=== PATIENT | male | born 1955 | race Caucasian/White ===

== ENCOUNTER 2016-12-29 07:33 | Outpatient (CLI) | payer MEDICARE, BC ==
[~2016-12-29] VITALS: Ht 175.3 cm; Wt 78.2 kg
--- NOTE | ~2016-12-29 | HEMODYNAMI ---
PATIENT:PARIS BENJAMIN MEDICAL RECORD: [id number] : 55 LOCATION:DBI ADMISSION DATE: 12/29/16 Generatedon:12/29/201610:57 Patient name: PARIS BENJAMIN Patient #: [id number] SSN: D OB: 1955 Date of study: 12/29/2016 Page: Of Hemodynamic Procedure Report Patient Data Patient Demographics Procedure consent was obtained First Name: PARIS Gender: Male Last Name: SOURAV : 1955 [facility] Initial: NATHANAEL Age: 61 year(s) Patient #: [id number] Race: Additional ID: [id number] Contact details Address: [address] [place] [address] State: [place] City: [facility] Zip code: [address] Past Medical History Performed procedures and imaging results Date Procedure Procedure Results Comments 12/18/2016 Stress testing Positive anterolaterally with SPECT MPI Allergies Allergen Reaction Date Comments Reported Other allergy 12/29/2016 phenobarbital Admission Admission Data Admission Date: 12/29/2016 Admission Time: 7:33 Admit Source: Other Insurance Payor: Private health insurance, Medicare Medications upon Admission Medications Dosage Times Administered Last Remarks per Delivery Day Date and Time Clopidogrel Yes 12/29/2016 0:00 Lab Results Lab Result Date: 12/29/2016 Lab Result Time: 7:50 Biochemistry Name Units Result Min Max Creatinine mg/dl 1 --(--*-)-- 0.6 1.3 CBC Name Units Result Min Max Hemoglobin g/dl 14.1 --(*---)-- 13.5 17.5 Procedure Procedure Types Cath Procedure Diagnostic Procedure LHC LHC w/Coronaries w/Grafts PCI Procedure Coronary Stent Initial Procedure Description Procedure Date Procedure Date: 12/29/2016 Procedure Start Time: 10:14 Procedure End Time: 10:54 Procedure Staff Name Function Kaylee Hall RT Scrub Xander Easton RT Monitor Wali Keita RT [employer] June Posada RN Nurse Willem Arciniega MD Performing Physician Rene Kitchen RT Monitor Procedure Data Cath Procedure Fluoroscopy Diagnostic fluoroscopy Total fluoroscopy Time: time: 15.4 min 15.4 min Diagnostic fluoroscopy Total fluoroscopy dose: dose: 1307 mGy 1307 mGy Contrast Material Contrast Material Type Amount (ml) Isovue 300 248 Entry Location Entry Primary Successful Side Size Upsize Upsize Entry Closure Succes sful Closure Location (Fr) 1 (Fr) 2 (Fr) Remarks Device Remarks Femoral Right 5 Fr 6 Fr Vascade artery Short Closure System Estimated blood loss: 10 ml Diagnostic catheters Device Type Used For End Catheter Placement Cordis 5Fr Pigtail Procedure Catheter (MP) Cordis 5Fr JL 4.0 Procedure Catheter (MP) Cordis Infinity 5Fr JL 6 Procedure catheter Cordis 5Fr 3DRC Catheter Procedure (MP) Cordis Infinity 5Fr AR 2 Procedure MOD catheter Cordis Infinity 5Fr LCB Procedure catheter Procedure Complications No complications Procedure Medications Medication Administration Route Dosage Oxygen NC 2 l/min Lidocaine 2% added to field 20 Heparin Flush Bag added to field 2 bags (1000units/500ml NS) 0.9% NaCl I.V. 100 ml/hr Benadryl I.V. 50 mg Versed 1 mg Fentanyl I.V. 50 mcg Versed 1 mg Fentanyl I.V. 50 mcg Versed 1 mg Fentanyl I.V. 50 mcg Heparin Bolus I.V. 4000 units Versed 1 mg Fentanyl I.V. 50 mcg Hemodynamics Rest HGB: 14.1 (g/dl) Heart Rate: 56 (bpm) Pressure Samples Time Site Value (mmHg) Purpose Heart Use Rate(bpm) 10:17 AO 150/26(61) Snapshot 58 Snapshots Pre Cath Intra NCS Post Cath Vital Signs Time Heart Resp SPO2 etCO2 IU7lmmg NIBP (mmHg) Rhythm Pain Sedation Rate (ipm) (%) (mmHg) (mmHg) Status Level (bpm) 9:52:19 57 18 97 0 0 147/75(109) NSR 0 (11) 10(A) , No pain 9:56:36 55 19 98 0 0 150/76(126) NSR 0 (11) 10(A) , No pain 10:00:50 57 18 93 0 0 132/78(110) NSR 0 (11) 10(A) , No pain 10:05:02 56 19 96 0 0 147/69(123) NSR 0 (11) 10(A) , No pain 10:09:15 57 19 93 0 0 140/79(117) NSR 0 (11) 10(A) , No pain 10:13:25 59 19 93 0 0 149/81(111) NSR 0 (11) 10(A) , No pain 10:17:41 57 17 98 0 0 135/73(114) NSR 0 (11) 9(A) , No pain 10:21:53 59 16 94 0 0 121/71(103) NSR 0 (11) 9(A) , No pain 10:25:59 57 15 94 0 0 140/81(112) NSR 0 (11) 9(A) , No pain 10:30:11 60 16 93 0 0 144/76(122) NSR 0 (11) 9(A) , No pain 10:34:23 68 15 95 0 0 147/79(127) NSR 0 (11) 9(A) , No pain 10:38:37 60 16 95 0 0 150/79(126) NSR 0 (11) 9(A) , No pain 10:42:53 60 16 93 0 0 146/73(121) NSR 0 (11) 9(A) , No pain 10:47:09 59 16 93 0 0 134/72(108) NSR 0 (11) 9(A) , No pain 10:51:19 61 16 94 0 0 141/80(116) NSR 0 (11) 10(A) , No pain Medications Time Medication Route Dose Verified Delivered Reason Notes Effectiveness by by 9:50:47 Oxygen NC 2 Willem Buffie used for l/min Demian Posada RN procedure 9:50:54 Lidocaine 2% added 20ml Willem Bangura for local to vial Demian Arciniega MD anesthetic field 9:50:59 Heparin Flush added 2 Willemregan Bangura used for Bag to bags Demian Arciniega MD procedure (1000units/500ml field NS) 9:51:09 0.9% NaCl I.V. 100 Willem Buffie Per physician ml/hr Demian Posada RN 9:51:21 Benadryl I.V. 50 mg Willem Buffie used for Demian Posada RN procedure 10:12:10 Fentanyl I.V. 50 Willem Buffie for sedation mcg Demian Posada RN 10:12:59 Versed 1 mg Willem Buffie for sedation Demian Posada RN 10:16:14 Versed 1 mg Willem Buffie for sedation Demian Posada RN 10:16:17 Fentanyl I.V. 50 Willem Buffie for sedation mcg Demian Posada RN 10:21:57 Versed 1 mg Willem Buffie for sedation Demian Posada RN 10:22:01 Fentanyl I.V. 50 Willem Jose Antonioie for sedation mcg Demian Posada RN 10:25:35 Heparin Bolus I.V. 4000 Willem Buffie for verifi ed units Demian Posada RN anticoagulation with dr arciniega 10:40:43 Versed 1 mg Willem Buffie for sedation Demian Posada RN 10:40:47 Fentanyl I.V. 50 Willem Buffie for sedation mcg Demian Posada RN Procedure Log Time Note 9:27:26 Wali Keita RT(R) sent for patient. Start room use. 9:37:00 Diagnostic Cath Status : Elective 9:37:23 Admit Source: Other 9:37:28 Time tracking: Regular hours 9:37:31 Plan of Care:Hemodynamics will remain stable., Cardiac rhythm will remain stable., Comfort level will be maintained., Respiratory function will remain adequate., Patient/ family verbilizes understanding of procedure., Procedure tolerated without complication., Recovers from procedure without complications.. 9:46:10 Patient received from Outpatients to [facility] 2 Alert and oriented. Tansferred to table in Supine position. 9:46:11 Warm blankets applied, and isidra hugger turned on for patient comfort. 9:46:12 Correct patient and procedure confirmed by team. 9:46:13 Signed procedure consent form obtained from patient. 9:46:14 ECG and BP/O2 sat monitors applied to patient. 9:46:16 Full Disclosure recording started 9:50:31 Vital chart was started 9:50:47 Oxygen 2 l/min NC was given by June Posada RN; used for procedure; 9:50:54 Lidocaine 2% 20ml vial added to field was given by Willem Arciniega MD; for local anesthetic; 9:50:59 Heparin Flush Bag (1000units/500ml NS) 2 bags added to field was given by Willem Arciniega MD; used for procedure; 9:51:09 0.9% NaCl 100 ml/hr I.V. was given by June Posada RN; Per physician; 9:51:21 Benadryl 50 mg I.V. was given by June Posada RN; used for procedure; 9:54:41 Baseline sample Acquired. 9:54:47 Rhythm: sinus rhythm 9:55:02 H&P Date Dictated: 12/24/2016 Within 30 days and on chart., H&P Addendum completed by physician on day of procedure. (MUST COMPLETE FOR ALL OUTPATIENTS). 9:55:29 Pre-procedure instructions explained to patient. 9:55:30 Pre-op teaching completed and patient verbalized understanding. 9:55:30 Pre-procedure instructions explained to patient. 9:55:32 Family in waiting room. 9:55:35 Patient NPO since Midnight. 9:55:52 Patient allergic to Other allergyphenobarbital 9:55:54 Is the patient allergic to Iodine/contrast media? No. 9:56:01 Is patient on blood thinner?Yes 9:56:10 ACC The patient was administered the following blood thiners within the last 24 hours: ACCPlavix 9:56:26 Patient diabetic? Yes. 9:56:28 If diabetic: On Metformin? Yes 9:56:38 If on Metformin: Last Dose? 12/27/2016 9:56:43 Previous problem with sedation/anesthesia? No ? 9:56:45 Snore? Yes 9:56:46 Sleep apnea? Yes 9:56:47 Deviated septum? No 9:56:49 Opens mouth fully? Yes 9:56:51 Sticks out tongue? Yes 9:56:55 Airway obstruction? No ? 9:56:59 Dentures? No ? 9:57:05 Pre procedure: right dorsailis pedis pulse 1+ Palpable, but thready & weak; easily obliterated 9:57:11 Patient pain scale 0/10 ?. 9:57:19 IV patent on arrival in left forearm with 0.9% NaCl at O. 9:58:27 Lab Result : Hemoglobin 14.1 g/dl 9:58:27 Lab Result : Creatinine 1 mg/dl 9:58:30 Lab results completed and on chart. 9:58:32 Right groin area was prepped with chlora-prep and draped in sterile fashion 9:58:39 Sharps counted by scrub and verified by R.N. 9:58:39 Alarms reviewed by R. N. 9:58:43 Use device set Femoral Dx 9:58:54 Tegaderm 4 x 4 opened to sterile field. 9:58:55 Acist Hand Control opened to sterile field. 9:58:55 Acist Manifold opened to sterile field. 9:58:56 Acist Syringe opened to sterile field. 9:58:57 Bag Decanter opened to sterile field. 9:58:58 Terumo 5Fr [place] Sheath opened to sterile field. 9:58:58 Cardinal Cath Pack opened to sterile field. 9:58:59 Cordis Infinity 5Fr Multipack catheter opened to sterile field. 9:58:59 St Olaf 260cm J .035 wire opened to sterile field. 9:59:09 ACC Patient presents with Stable Angina CCS Anginal Class 2--Slight limitation of ordinary activity. 9:59:16 Physician paged 10:01:11 Zero performed for pressure channel P1 10:07:02 Insurance Payor : Private health insurance, Medicare 10:11:56 --------ALL STOP TIME OUT------ 10:11:56 Physician arrived 10:11:57 Final Timeout: patient, procedure, and site verified with staff and physician. All members of the team are in agreement. 10:11:58 Right groin site verified by team. 10:12:01 Physical assessment completed. ASA score P 3 - A patient with severe systemic disease as per Willem Arciniega MD. 10:12:04 Sedation plan: IV Moderate Sedation Versed, Fentanyl 10:12:10 Fentanyl 50 mcg I.V. was given by June Posada RN; for sedation; 10:12:59 Versed 1 mg was given by June Posada RN; for sedation; 10:14:52 Procedure started. 10:14:54 Local anesthetic to right femoral artery with Lidocaine 2% by Willem Arciniega MD.INITIAL ACCESS ONLY 10:15:30 A 5 Fr sheath was inserted into the Right Femoral artery 10:16:06 A Cordis 5Fr Pigtail Catheter (MP) was advanced over the wire and used for Procedure. 10:16:14 Versed 1 mg was given by June Posada RN; for sedation; 10:16:17 Fentanyl 50 mcg I.V. was given by June Posada RN; for sedation; 10:17:15 LV gram done using VANEGAS 10:17:27 LV hemodynamics recorded. 10:18:00 EF : 40 % 10:18:06 Injector settings: Ml/sec: 10, Volume: 20, 10:18:45 A Cordis 5Fr JL 4.0 Catheter (MP) was advanced over the wire and used for Procedure. 10:19:34 Catheter removed. unable to cannulate vessel. 10:19:57 A Cordis Infinity 5Fr JL 6 catheter was advanced over the wire and used for Procedure. 10:20:42 Catheter removed. unable to cannulate vessel. 10:21:00 [employer] Launcher 6Fr EBU 4.5 guide catheter opened to sterile field. 10:21:00 Terumo 6Fr [place] Sheath opened to sterile field. 10:21:09 Sheath upsized to a 6 Fr Short. 10::57 Versed 1 mg was given by June Posada RN; for sedation; 10:22:01 Fentanyl 50 mcg I.V. was given by June Posada RN; for sedation; 10:23:08 6 Fr ebu 4.5 guide catheter was inserted over the wire 10:23:17 LCA angiography performed. 10:23:55 Nikita BasixCompak Inflation Kit opened to sterile field. 10:23:56 Walton Whisper J 300cm 0.014 guide wire opened to sterile field. 10:25:35 Heparin Bolus 4000 units I.V. was given by June Posada RN; for anticoagulation; verified with dr arciniega 10:25:43 whisper wire advanced. 10:26:39 Walton Fielder XT J 300cm 0.014 guide wire opened to sterile field. 10:26:59 Wire removed. unable to cross lesion. 10:27:16 Fielder wire advanced. 10:30:29 Wire advanced across lesion. 10:30:33 Inflation number: 1 A [place] Sci Chariton 2.0 X 15 balloon was prepped and advanced across the Ramus, then inflated to 7 ORION for 0:10 (min:sec). 10:31:22 Inflation number: 2 The [place] Sci Chariton 2.0 X 15 balloon was reinflated across the Ramus, to 7 ORION for 0:10 (min:sec). 10:36:28 Balloon removed over the wire. 10:36:31 Inflation Number: 3 A Walton Mini Vision Rx 2.0 x 28 stent was prepped and advanced across the Ramus. The stent was deployed at 11 ORION for 0:10 (min:sec). 10:38:46 Stent catheter was removed intact over wire. 10:38:52 Wire removed. 10:38:53 Guide catheter removed. 10:39:16 A Cordis 5Fr 3DRC Catheter () was advanced over the wire and used for Procedure. 10:39:22 MARTINEZ to LAD angiography performed. 10:39:40 RCA angiography performed. 10:40:01 Catheter removed. 10:40:09 A Cordis Infinity 5Fr AR 2 MOD catheter was advanced over the wire and used for Procedure. 10:40:43 Versed 1 mg was given by June Posada RN; for sedation; 10:40:47 Fentanyl 50 mcg I.V. was given by June Posada RN; for sedation; 10:41:48 SVG to Circ angiography performed. 10:43:36 Medtronic Launcher 6Fr AR 2.0 guide catheter opened to sterile field. 10:44:01 Catheter removed. 10:44:10 6 Fr ar 2 guide catheter was inserted over the wire 10:44:16 Guide Catheter removed. unable to cannulate vessel. 10:44:28 Medtronic Launcher 5Fr AL 2.0 guide catheter opened to sterile field. 10:44:38 5 Fr AL 2 guide catheter was inserted over the wire 10:46:00 Catheter removed. unable to cannulate vessel. 10:46:39 A Cordis Infinity 5Fr LCB catheter was advanced over the wire and used for Procedure. 10:47:32 SVG to Diag angiography performed. 10:48:19 Catheter removed. 10:50:00 Vascade 6/7 Fr Closure Device opened to sterile field. 10:50:15 Sheath removed intact; hemostasis achieved with Vascade Closure System to the Right Femoral artery. 10:50:17 Procedure ended.(Physican Out) 10:51:41 Fluoroscopy time 15.40 minutes. 10:51:48 Fluoroscopy dose: 1307 mGy 10:51:48 Flurop Dose total: 1307 10:53:05 Contrast amount:Isovue 300 248ml. 10:53:07 Sharps counted by scrub and verified by BorisN. 10:53:08 Insertion/operative site no bleeding no hematoma. 10:53:11 Post-op/insertion site Right Femoral artery dressed using a 4 x 4 and Tegaderm. 10:53:16 Post right femoral artery:stable, soft, clean and dry 10:53:17 Post Procedure Pulses reassessed and unchanged 10:53:20 Post-procedure physical assessment completed. ASA score P 3 - A patient with severe systemic disease as per Willem Arciniega MD. 10:53:24 Post procedure rhythm: unchanged. 10:53:26 Estimated blood loss: 10 ml 10:53:28 Patient needs reinforcement of post procedure teaching. 10:53:28 Post procedure instruction explained to patient.Patient verbalizes understanding. 10:53:39 Procedure type changed to Cath procedure, Diagnostic procedure, LHC, LHC w/Coronaries w/Grafts, PCI procedure, Coronary Stent Initial 10:54:07 Procedure and supply charges have been captured, reviewed, submitted and are correct. 10:54:09 Procedure Complication : No complications 10:54:11 See physician's report for complete and final results. 10:54:11 Vital chart was stopped 10:54:14 Report given to Post Procedure Room. 10:54:17 Patient transfered to Post Procedure Room with Stretcher. 10:54:19 Full Disclosure recording stopped 10:54:19 Procedure ended. 10:54:26 ACC-PCI Only Patient was given prescriptions, or instructed by Willem Arciniega MD to start/continue the following medications upon discharge: Plavix 10:55:19 End room use (Document Last) Intervention Summary Intervention Notes Time ActionType Lesion and Equipment Action# Pressure Duration Attributes Used 10:30:33 Inflate Ramus [place] 1 7 00:10 balloon Sci Chariton 2.0 X 15 balloon 10:31:22 Reinflate Ramus [place] 2 7 00:10 balloon Sci [place] 2.0 X 15 balloon 10:36:31 Place stent Ramus Walton 3 11 00:10 Mini Vision Rx 2.0 x 28 stent Device Usage Item Name Manufacture Quantity Catalog Number Hospital Part Current Mini mal Lot# / Charge Number Stock Stock Serial# Code Tegaderm 4 3M 1 [id number] 647165 669870 5 x 4 Acist Acist 1 42431 772939 297683 520251 5 Manifold Medical Systems Inc Acist Hand Acist 1 68042 534426 801974 097797 5 Mobile On Services Systems Inc Acist Acist 1 62230 022311 014640 754587 20 Syringe Affibody Systems Inc Bag Microtek 1 2002 596531 79528 385670 5 Decanter Medical Inc. Cardinal Cardinal [address] 204200 10425 061250 5 Cath Pack Health Terumo 5Fr Terumo 1 [id number] 659318 614295 870961 [address] [place] [address] [facility] Olaf 1 516058 492609 791678 801251 30 260cm J .035 wire Cordis Cardinal 1 [id number] 663865 34252 214137 30 Infinity Health 5Fr Multipack catheter Cordis 5Fr Cardinal 1 [id number] 5 Pigtail Health Catheter (MP) Cordis 5Fr Cardinal 1 590029 5 JL 4.0 Health Catheter (MP) Cordis Cardinal 1 [id number] 092481 484430 079501 5 Infinity Health 5Fr JL 6 catheter Terumo 6Fr Terumo 1 [id number] 285387 101825 358886 40 [place] Sheath Medtronic Medtronic 1 [id number] 008365 97290 738356 0 Launcher 6Fr EBU 4.5 guide catheter Merit Merit 1 [id number] 617624 344999 541456 15 BasixCompak Medical Inflation Kit Walton Walton 1 [id number] 243578 402916 306507 5 Whisper J Vascular 300cm 0.014 guide wire Walton Walton 1 [id number] 340430 868815 399235 5 Fielder XT Vascular J 300cm 0.014 guide wire [place] Sci [place] 1 [id number] 717357 217515 571568 1 [id number] [facility] Scientific 2.0 X 15 balloon Walton Mini Walton 1 [id number] 846941 972192 411138 5 [id number] Vision Rx Vascular 2.0 x 28 stent Cordis 5Fr Cardinal 1 323257 5 3DRC Health Catheter (MP) Cordis Cardinal 1 [id number] 864926 217412 038980 20 Infinity Health 5Fr AR 2 MOD catheter Medtronic Medtronic 1 [id number] 780059 96287 636096 1 Launcher 6Fr AR 2.0 guide catheter Medtronic Medtronic 1 [id number] 911773 409009 762287 1 Launcher 5Fr [place] 2.0 guide catheter Cordis Cardinal 1 [id number] 316080 889762 336399 5 Snapguide 5Fr LCB catheter Vascade 05/06 Cardiva 1 [id number] 003636 522982 310925 5 Fr Closure Medical, Device Inc. Signature Audit [place] Stage Time Signature Unsigned Intra-Procedure 12/29/2016 Rene Kitchen RT(R) 10:55:43 AM RT(R) 12/29/2016 10:56:41 AM Intra-Procedure 12/29/2016 Rene Kitchen 10:57:03 AM RT(R) Signatures Monitor : Xander Easton RT Signature : Date : Time : Monitor : Rene Kitchen RT Signature : Date : Time : [address] [place] [place] [address]
[~2016-12-29 07:33] MED LIST: ASPIRIN325 MG PO; CYCLOBENZAPRINE10 MG PO; GLUCOPHAGE500 MG PO; HYDROCODONE-APA1 TAB PO; METOPROLOL TART50 MG PO; NEURONTIN600 MG PO; PHENERGAN25 M1 PO; PRAVACHOL20 MG PO; PRINIVIL10 MG PO; PROZAC20 MG PO
[2016-12-29] MEDS ORDERED: NORCO 7.5/325 T1 TA1 PO (08:23)
[2016-12-29 08:24] LABS: CALC OSMOLALITY 285 mosm/kg (275-300); CALCIUM 8.8 mg/dL (8.5-10.1); CARBON DIOXIDE 28.4 mmol/L (21.0-32.0); CHLORIDE - SERUM 107 mmol/L (98-107); GLUCOSE 120 mg/dL (74-106); POTASSIUM - SERUM 4.2 mmol/L (3.5-5.1); SODIUM 141 mmol/L (136-145); UREA NITROGEN 24 mg/dL (7-18); eGFR NON AFRICAN AMERICAN 81 mL/min (90-120)
[2016-12-29] MEDS ORDERED: CATAPRES0.1 MG PO (08:24)
[2016-12-29] MEDS ORDERED: ZANAFLEX4 MG PO (08:25)
[2016-12-29] MEDS ORDERED: ATIVAN0.5 MG (08:25)
[2016-12-29] MEDS ORDERED: COREG25 MG PO (08:25)
[2016-12-29 08:26] LABS: BASOPHILS 0.2 % (0.0-2.0); EOSINOPHILS 1.1 % (0-7); HEMATOCRIT 43.7 % (42.0-54.0); HEMOGLOBIN 14.1 g/dL (13.5-17.5); IMMATURE GRANULOCYTES 0.4 % (0-5); LYMPHOCYTES 20.1 % (15-50); MCHC 32.3 g/dL (31.0-37.0); MCV 99.1 fL (80.0-100.0); MEAN PLATELET VOLUME 9.9 fL (7.4-10.4); MONOCYTES 11.4 % (2-11); NEUTROPHILS 66.8 % (40-80); RBC 4.41 10x6/uL (4.20-6.10); RDW 15.4 % (11.5-14.5); WBC 5.7 10x3/uL (4.8-10.8)
[2016-12-29] MEDS ORDERED: ZOFRAN4 MG (08:26)
[2016-12-29] MEDS ORDERED: NAPROSYN500 MG (08:26)
[2016-12-29] MEDS ORDERED: PLAVIX75 MG PO (08:27)
[2016-12-29 08:28] LABS: PLATELET COUNT 102 10x3/uL (130-400)
[2016-12-29 08:40] VITALS: BP 141/66; Ht 175.3 cm; Wt 78.2 kg
--- NOTE | 2016-12-29 11:42 | NUR ---
1120 SLEEPING, LYING FLAT, NC 2L IN PLACE WHILE RESTING. NSR RATE 60 W NO C/O CHEST PAIN. PULSES PALP X 4. R GROIN 6F VASCADE C/D/I WITH NO HEMATOMA OR BLEEDING. FRIEND AT BEDSIDE.
--- NOTE | 2016-12-29 12:23 | NUR ---
1150 VITALS ALL WNL. R GROIN 6F VASCADE C/D/I WITH NO HEMATOMA OR BLEEDING.
--- NOTE | 2016-12-29 12:35 | NUR ---
R GROIN 6F VASCADE C/D/I WITH NO HEMATOMA OR BLEEDING. NSR RATE 61 W NO C/O CHEST PAIN. PULSES PALP X 4.
--- NOTE | 2016-12-29 12:50 | NUR ---
PATIENT C/O BACK PAIN 07/09. REPOSITIONED USING PILLOWS. MORHINE GIVEN ORDERED FOR BACK PAIN. WILL MONITOR FOR EFFECTIVENESS.
--- NOTE | 2016-12-29 13:17 | NUR ---
R GROIN STARTING TO OOZE, FEMSTOP APPLIED AT BEDSIDE. WILL MONITOR CLOSELY FOR CONTINUED BLEEDING.
--- NOTE | 2016-12-29 13:45 | NUR ---
R GROIN REMAINS C/D/I WITH FEMSTOP IN PLACE. ALL VITALS WNL.
--- NOTE | 2016-12-29 14:16 | OP ---
PATIENT NAME: PARIS BENJAMIN MEDICAL RECORD: [id number] :55 LOCATION:D.CAT ADMISSION DATE: SURGEON: DUTCH MAYA MD DATE OF OPERATION: 12/29/2016 PROCEDURES: 1. PTCA, stent of ramus intermedius. 2. Left heart catheterization. 3. Selective coronary angiography. 4. Vein graft angiography. 5. MARTINEZ angiography. 6. Left ventriculogram. INDICATION: Angina and coronary artery disease. PROCEDURE IN DETAIL: After informed consent was obtained and after detailed explanation of risks, benefits, as well as alternative therapies, the patient elected to proceed with angiogram and angioplasty. The right femoral area was prepped and draped in normal sterile fashion. The right femoral artery was cannulated via modified Seldinger technique with placement of 6-Uzbek sheath. All catheters exchanged through this sheath. FINDINGS: The left ventriculogram was performed in the standard 30-degree VANEGAS view reveals global hypokinesis throughout all segments. Overall ejection fraction of 40%. SELECTIVE CORONARY ANGIOGRAPHY: 1. Left main showed no significant angiographic disease. 2. Left anterior descending is totally occluded. There is a relatively large LAD diagonal just before the total occlusion; it is 99% stenosis at the ostium. 3. The left circumflex has a long ramus intermedius that has 99% stenosis in the mid vessel. 4. Left circumflex has 100% stenosis of the first obtuse marginal, otherwise only mild irregularities. 5. The right coronary is chronically totally occluded. 6. Vein graft to the right coronary is chronically totally occluded. 7. MARTINEZ to the LAD is widely patent. 8. Vein graft to the LAD second diagonal was patent. 9. Vein graft to the first obtuse marginal was patent. PTCA STENT OF THE RAMUS INTERMEDIUS: We attempted to cross the 99% stenosis leading into the first diagonal; however, no wire would cross this area. We then turned our attention to the ramus intermedius. We ballooned it with a 2.0 balloon and stented it with a 2.0 x 28 mini Vision stent. Result was 0% residual stenosis. OVERALL IMPRESSION: Successful percutaneous transluminal coronary angioplasty stent of the ramus intermedius going from 99% initial stenosis to 0% residual. TRANSINT:[id number] Voice Confirmation ID: [id number] DOCUMENT ID: [id number] OPERATIVE REPORT [id number] SOURAVPARIS BRENNER, DUTCH BURRELL at 1416 CC: [id number] DICTATION DATE: 12/29/16 1056 METAL BURRER: 12/29/16 1243 REG [facility] [address] [place] [address]
--- NOTE | 2016-12-29 14:31 | NUR ---
1405 GAVE NORCO 20MG PO ORDERED FOR BACK PAIN...WILL MONTIOR FOR EFFECTIVENESS. 1420 RELEASED PRESSURE FROM R GROIN FEMSTOP BY 40, WILL MONITOR FOR BLEEDING.
--- NOTE | 2016-12-29 14:54 | NUR ---
FEMSTOP REMOVED, WILL MONITOR CLOSELY FOR BLEEDING. ALL VITALS WNL.
--- NOTE | 2016-12-29 15:33 | NUR ---
PIV REMOVED FROM LEFT ARM WITH BANDAID APPLIED. R GROIN REMAINS C/D/I WITH NO HEMATOMA OR BLEEDING. UP TO BEDSIDE TO DRESS WITH ASSIST FROM BROTHER.
--- NOTE | 2016-12-29 15:52 | NUR ---
AMBULATED TO BATHROOM WITH CHEST PAIN DENIED VERBAL AND WRITTEN DISCHARGE GONE OVER WITH PATIENT AND FAMILY LEFT VIA WC TO [facility] FOR TRANSPORT HOME
== END 2016-12-29 15:53 | disposition home or self-care (01) ==
LOC: D.CATH 07:33
PROVIDERS: Internal Medicine Interventional Cardiology
DX: I25.119 Atherosclerotic heart disease of native coronary artery with unspecified angina pectoris (principal)

== ENCOUNTER → 2018-06-16 08:35 | Outpatient (CLI) | payer MEDICARE ==
[~2018-06-16] VITALS: Ht 175.3 cm; Wt 90.9 kg
--- NOTE | ~2018-06-16 | HEMODYNAMI ---
PATIENT:PARIS BENJAMIN MEDICAL RECORD: [id number] : 55 LOCATION:[facility] ADMISSION DATE: 06/16/18 Generatedon:06/16/201810:45 Patient name: PARIS BENJAMIN Patient #: [id number] SSN: D OB: 1955 Date of study: 06/16/2018 Page: Of Hemodynamic Procedure Report Patient Data Patient Demographics Procedure consent was obtained First Name: PARIS Gender: Male Last Name: SOURAV : 1955 [facility] Initial: NATHANAEL Age: 62 year(s) Patient #: [id number] Race: Additional ID: [id number] Contact details Address: [address] [place] [address] State: [place] City: [facility] Zip code: [address] Past Medical History Allergies Allergen Reaction Date Comments Reported Other allergy 12/29/2016 phenobarbital Other allergy 06/16/2018 PHENOBARBITAL Admission Admission Data Admission Date: 06/16/2018 Admission Time: 8:35 Procedure Procedure Types Cath Procedure Diagnostic Procedure LHC LHC w/Coronaries w/Grafts Sedation Charges Moderate Sedation up to 30 minutes PCI Procedure Coronary Stent Coronary Stent Initial x2 Procedure Description Procedure Date Procedure Date: 06/16/2018 Procedure Start Time: 10:13 Procedure End Time: 10:44 Procedure Staff Name Function Willem Arciniega MD Performing Physician Kaylee Hall RT Monitor Bethany Isaac RT Scrub Mack Wang RN Nurse Procedure Data Cath Procedure Fluoroscopy Diagnostic fluoroscopy Total fluoroscopy Time: time: 11.5 min 11.5 min Diagnostic fluoroscopy Total fluoroscopy dose: 790 dose: 790 mGy mGy Contrast Material Contrast Material Type Amount (ml) Isovue 300 170 Entry Location Entry Primary Successful Side Size Upsize Upsize Entry Closure Succes sful Closure Location (Fr) 1 (Fr) 2 (Fr) Remarks Device Remarks Femoral Right 6 Fr Exoseal artery Short Estimated blood loss: 10 ml Diagnostic catheters Device Type Used For End Catheter Placement DIAGNOSTIC Pigtail 5Fr LV Angiography catheter ([id number]) DIAGNOSTIC Pigtail 5Fr LV Angiography catheter ([id number]) DIAGNOSTIC LCB 5Fr SVG Angiography catheter ([id number]) DIAGNOSTIC 3DRC 5Fr Internal mammary catheter ([id number]) arteriography Procedure Complications No complications Procedure Medications Medication Administration Route Dosage Oxygen etCO2 Nasal cannula 2 l/min Heparin Flush Bag added to field 2 bags (1000units/500ml NS) 0.9% NaCl I.V. 100 ml/hr Fentanyl I.V. 50 mcg Versed I.V. 1 mg Fentanyl I.V. 50 mcg Versed I.V. 1 mg Heparin Bolus I.V. 4000 units Integrilin (Bolus I.V. 8.5 ml 2mg/ml) Integrilin (Bolus wasted 1.5 ml 2mg/ml) Fentanyl I.V. 50 mcg Plavix P.O. 600 mg Hemodynamics Rest Heart Rate: 53 (bpm) Snapshots Pre Cath Intra NCS Post Cath Vital Signs Time Heart Resp SPO2 etCO2 NIBP (mmHg) Rhythm Pain Sedation Rate (ipm) (%) (mmHg) Status Level (bpm) 10:03:13 50 16 96 37.5 163/82(140) NSR 0 (11) 10(A) , No pain 10:07:37 51 17 96 30.8 156/82(123) NSR 0 (11) 10(A) , No pain 10:12:42 50 16 97 15 144/74(116) NSR 0 (11) 10(A) , No pain 10:17:02 50 17 97 23.2 124/65(100) NSR 0 (11) 9(A) , No pain 10:21:16 50 17 94 0 126/71(99) NSR 0 (11) 9(A) , No pain 10:25:26 47 17 95 27.7 123/67(101) NSR 0 (11) 9(A) , No pain 10:29:42 48 17 96 36.7 120/67(98) NSR 0 (11) 9(A) , No pain 10:34:37 50 16 96 40.5 128/68(94) NSR 0 (11) 9(A) , No pain 10:38:55 50 16 96 40.5 124/64(100) NSR 0 (11) 9(A) , No pain 10:43:09 49 16 96 41.3 131/69(107) NSR 0 (11) 9(A) , No pain Medications Time Medication Route Dose Verified Delivered Reason Notes Effectiveness by by 10:03:51 Oxygen etCO2 2 Willem Giron Per physician Nasal l/min Demian Wang RN cannula 10:04:00 Heparin Flush added 2 Willem Giron used for Bag to bags Demian Wang RN procedure (1000units/500ml field NS) 10:04:09 0.9% NaCl I.V. 100 Willem Philipy Per physician ml/hr Demian Wang RN 10:10:20 Fentanyl I.V. 50 Willem Giron for sedation mcg Demian Wang RN 10:10:27 Versed I.V. 1 mg Willem Philipy for sedation Demian Wang RN 10:14:36 Fentanyl I.V. 50 Willem Mack for sedation mcg Demian Wang RN 10:14:40 Versed I.V. 1 mg Willem Giron for sedation Demian Wang RN 10:23:21 Heparin Bolus I.V. 4000 Willem Giron for units Demian Wang RN anticoagulation 10:24:48 Integrilin I.V. 8.5 Willem Philipy for (Bolus 2mg/ml) ml Demian Wang RN antiplatelet therapy 10:24:56 Integrilin wasted 1.5 Willem Giron for (Bolus 2mg/ml) ml Demian Wang RN antiplatelet therapy 10:25:35 Fentanyl I.V. 50 Willem Philipy for sedation mcg Demian Wang RN 10:43:47 Plavix P.O. 600 Willem Giron for mg Demian Wang RN antiplatelet therapy Procedure Log Time Note 9:40:24 Mack Wang RN sent for patient. Start room use. 9:47:46 Time tracking: Regular hours (M-F 7:00 - 5:00) 9:47:50 Plan of Care:Hemodynamics will remain stable., Cardiac rhythm will remain stable., Comfort level will be maintained., Respiratory function will remain adequate., Patient/ family verbilizes understanding of procedure., Procedure tolerated without complication., Recovers from procedure without complications.. 9:48:10 H&P Date Dictated: 05/19/2018 Within 30 days and on chart., H&P Addendum completed by physician on day of procedure. (MUST COMPLETE FOR ALL OUTPATIENTS). 9:48:27 Patient allergic to Other allergyPHENOBARBITAL 9:52:52 Patient received from Pre/Post Procedure Room to CCL 3 Alert and oriented. Tansferred to table in Supine position. 9:52:53 Warm blankets applied, and isidra hugger turned on for patient comfort. 9:52:54 Correct patient and procedure confirmed by team. 9:52:55 Signed procedure consent form obtained from patient. 9:52:56 ECG and BP/O2 sat monitors applied to patient. 10:01:58 Vital chart was started 10:02:41 Baseline sample Acquired. 10:02:47 Rhythm: sinus bradycardia 10:02:48 Full Disclosure recording started 10:02:50 Pre-procedure instructions explained to patient. 10:02:50 Pre-op teaching completed and patient verbalized understanding. 10:02:52 Family in patients room. 10:02:53 Patient NPO since Midnight. 10:02:56 Is the patient allergic to Iodine/contrast media? No. 10:02:58 Is patient on blood thinner?No 10:02:59 Patient diabetic? Yes. 10:03:01 If diabetic: On Metformin? Yes 10:03:05 If on Metformin: Last Dose? 06/15/2018 10:03:08 Previous problem with sedation/anesthesia? No ? 10:03:09 Snore? Yes 10:03:10 Sleep apnea? No 10:03:11 Deviated septum? No 10:03:12 Opens mouth fully? Yes 10:03:13 Sticks out tongue? Yes 10:03:17 Airway obstruction? No ? 10:03:21 Dentures? Yes in 10:03:24 Pre procedure: right dorsailis pedis pulse 2+ Normal; easily identifiable; not easily obliterated 10:03:26 Patient pain scale 0/10 ?. 10:03:31 IV patent on arrival in left hand with 0.9% NaCl at [facility]. 10:03:47 Right Radial & Right Groin area was prepped with chlora-prep and draped in sterile fashion 10:03:49 Alarms reviewed by R. N. 10:03:49 Sharps counted by scrub and verified by R.N. 10:03:51 Oxygen 2 l/min etCO2 Nasal cannula was administered by Mack Wang RN; Per physician; 10:04:00 Heparin Flush Bag (1000units/500ml NS) 2 bags added to field was administered by Mack Wang RN; used for procedure; 10:04:09 0.9% NaCl 100 ml/hr I.V. was administered by Mack Wang RN; Per physician; 10:09:51 Final Timeout: patient, procedure, and site verified with staff and physician. All members of the team are in agreement. 10::54 Right groin site verified by team. 10:09:57 Physical assessment completed. ASA score P 2 - A patient with mild systemic disease as per Willem Arciniega MD. 10:10:00 Sedation plan: IV Moderate Sedation Medication:Versed, Fentanyl 10:10:20 Fentanyl 50 mcg I.V. was administered by Mack Wang RN; for sedation; 10:10:27 Versed 1 mg I.V. was administered by Mack Wang RN; for sedation; 10:13:54 Procedure started. 10:13:56 Local anesthetic to right femoral artery with Lidocaine 2% by Willem Arciniega MD.INITIAL ACCESS ONLY 10:14:15 ACIST Syringe (67428) opened to sterile field. 10:14:15 Bag Decanter () opened to sterile field. 10:14:16 Medline Cath Pack ([id number]) opened to sterile field. 10:14:16 DIAGNOSTIC WIRE .035 260cm J wire (755804) opened to sterile field. 10:14:26 Tegaderm 4 x 4 (1626W) opened to sterile field. 10:14:28 ACIST Hand Control (62122) opened to sterile field. 10:14:28 ACIST Manifold (50070) opened to sterile field. 10:14:36 Fentanyl 50 mcg I.V. was administered by Mack Wang RN; for sedation; 10:14:40 Versed 1 mg I.V. was administered by Mack Wang RN; for sedation; 10:15:11 A 6 Fr Short sheath was inserted into the Right Femoral artery 10:15:23 SHEATH Prelude 6Fr 0.035 (NLP-6L-23-035) opened to sterile field. 10:17:49 A DIAGNOSTIC Pigtail 5Fr catheter ([id number]) was advanced over the wire and used for LV Angiography. unable to cross valve 10:17:51 GUIDE 6FR EBU 4.5 catheter ([id number]) opened to sterile field. 10:18:00 6 Fr EBU 4.5 guide catheter was inserted over the wire 10:18:59 LCA angiography performed. 10:21:09 Use device set TAU PCI 10:21:16 INFLATOR Merit BasixCompak (PB6314) opened to sterile field. 10:21:23 CHOICE PT Extra Support 182cm wire ([id number]) opened to sterile field. 10:21:59 CHOICE PT ES TO DIAG wire advanced. 10:23:21 Heparin Bolus 4000 units I.V. was administered by Mack Wang RN; for anticoagulation; 10:23:22 Inflate balloon Inflation number: 1 A EUPHORA 2.0 x 30 Balloon ([id number]) was prepped and advanced across the 1st Diag, then inflated to 13 ORION for 0:11 (min:sec). 10:23:40 Balloon removed over the wire. 10:24:48 Integrilin (Bolus 2mg/ml) 8.5 ml I.V. was administered by Mack Wang RN; for antiplatelet therapy; 10:24:56 Integrilin (Bolus 2mg/ml) 1.5 ml wasted was administered by Mack Wang RN; for antiplatelet therapy; 10:25:03 Place stent Inflation Number: 2 A HADLEY RX 2.0 x 8 stent ([id number]) was prepped and advanced across the 1st Diag. The stent was deployed at 13 ORION for 0:06 (min:sec). 10:25:26 Stent catheter was removed intact over wire. 10:25:35 Fentanyl 50 mcg I.V. was administered by Mack Wang RN; for sedation; 10:25:57 Wire redirected to RAMUS. 10:28:47 Inflation number: 1 The EUPHORA 2.0 x 30 Balloon ([id number]) was reinflated across the Ramus, to 17 ORION for 0:08 (min:sec). 10:29:13 Inflation number: 2 The EUPHORA 2.0 x 30 Balloon ([id number]) was reinflated across the Ramus, to 17 ORION for 0:08 (min:sec). 10:29:34 Balloon removed over the wire. 10:29:35 Wire removed. 10:29:36 Guide catheter removed. 10:31:30 A DIAGNOSTIC Pigtail 5Fr catheter ([id number]) was advanced over the wire and used for LV Angiography. 10:31:35 LV gram done using VANEGAS 10:31:38 EF : 30 % 10:31:40 LV hemodynamics recorded. 10:31:43 Injector settings: Ml/sec: 10, Volume: 20, 10:33:30 Catheter exchanged over wire. 10:34:14 A DIAGNOSTIC LCB 5Fr catheter ([id number]) was advanced over the wire and used for SVG Angiography.TO OM/DIAG 10:38:46 Catheter removed. 10:39:36 A DIAGNOSTIC 3DRC 5Fr catheter ([id number]) was advanced over the wire and used for Internal mammary arteriography. TO LAD 10:40:11 Catheter removed. 10:40:18 Sheath removed intact; hemostasis achieved with Exoseal to the Right Femoral artery. 10:40:20 Procedure ended.(Physican Out) 10:40:30 EXOSEAL 6Fr (EX600) opened to sterile field. 10:40:38 Fluoroscopy time 11.50 minutes. 10:41:34 Flurop Dose total: 790 10:41:34 Fluoroscopy dose: 790 mGy 10:41:37 Contrast amount:Isovue 300 170ml. 10:41:38 Sharps counted by scrub and verified by R.N. 10:41:40 Insertion/operative site no bleeding no hematoma. 10:41:42 Post-op/insertion site Right Femoral artery dressed using a 4 x 4 and Tegaderm. 10:41:45 Post right femoral artery:stable, clean and dry 10:41:47 Post Procedure Pulses reassessed and unchanged 10:41:50 Post-procedure physical assessment completed. ASA score P 2 - A patient with mild systemic disease as per Willem Arciniega MD. 10:41:54 Post procedure rhythm: unchanged. 10:41:56 Estimated blood loss: 10 ml 10:41:57 Post procedure instruction explained to patient.Patient verbalizes understanding. 10:41:57 Patient needs reinforcement of post procedure teaching. 10:42:10 Procedure type changed to Cath procedure, Diagnostic procedure, LHC, LHC w/Coronaries w/Grafts, Sedation Charges, Moderate Sedation up to 30 minutes, PCI procedure, Coronary Stent, Coronary Stent Initial x2 10:42:28 Procedure Complication : No complications 10:42:31 See physician's report for complete and final results. 10:43:47 Plavix 600 mg P.O. was administered by Mack Wang RN; for antiplatelet therapy; 10:44:38 Procedure and supply charges have been captured, reviewed, submitted and are correct. 10:44:38 Vital chart was stopped 10:44:40 Report given to Pre/Post Procedure Room. 10:44:43 Patient transfered to Pre/Post Procedure Room with Stretcher. 10:44:50 Procedure ended. 10:44:50 Full Disclosure recording stopped 10:44:54 End room use (Document Last) Intervention Summary Intervention Notes Time ActionType Lesion and Equipment Used Action# Pressure Duration Attributes 10:23:22 Inflate 1st Diag EUPHORA 2.0 x 1 13 00:11 balloon 30 Balloon ([id number]) 10:25:03 Place stent 1st Diag HADLEY RX 2.0 x 2 13 00:06 8 stent ([id number]) 10:28:47 Reinflate Ramus EUPHORA 2.0 x 1 17 00:08 balloon 30 Balloon ([id number]) 10:29:13 Reinflate Ramus EUPHORA 2.0 x 2 17 00:08 balloon 30 Balloon ([id number]) Device Usage Item Name Manufacture Quantity Catalog Number Hospital Part Current Minimal Lot# / Charge Number Stock Stock Serial# Code ACIST Syringe Acist 1 [id number] [id number] [id number] 20 (91836) Medical Systems Kofikafe Bag Decanter Microtek 1 2001S 842663 80273 943631 5 (2001S) Medical Inc. Medline Cath Cardinal 1 [id number] 943205 43674 731018 5 Sysomos ([id number]) DIAGNOSTIC WIRE [facility] 1 215704 110795 497232 239216 30 .035 260cm J wire (409363) Tegaderm 4 x 4 3M 1 1626W 414069 634288 926214 5 (1626W) ACIST Hand Acist 1 12977 420553 594026 518604 5 Control (02464) Medical Systems Kofikafe ACIST Manifold Acist 1 03297 530133 087339 497581 5 (36301) [employer]omics SHEATH Prelude Merit 1 DJQ-[id number] 223309 4897946 903637 5 6Fr 0.035 Medical (HLI-8G-60-035) DIAGNOSTIC Cardinal 1 [id number] 721751 545972 056082 5 Pigtail 5Fr Health catheter (040070W) GUIDE 6FR EBU Medtronic 1 [id number] 813460 97104 665197 0 4.5 catheter ([id number]) INFLATOR Merit Merit 1 WK8752 226695 094003 224391 15 AppChinariCrimeWatch [place] (IH0298) CHOICE PT Extra [place] 1 [id number] 858035 083924 052060 5 Support 182cm Scientific wire ([id number]) EUPHORA 2.0 x Medtronic 1 [id number] 725729 802320 562113 5 [id number] 30 Balloon ([id number]) HADLEY RX 2.0 x 8 Medtronic 1 [id number] 479810 1098497 432332 5 [id number] stent ([id number]) DIAGNOSTIC LCB Cardinal 1 [id number] 885353 813705 291094 5 5Fr catheter Health (041878V) DIAGNOSTIC 3DRC Cardinal 1 [id number] 815719 678561 148008 9 5Fr catheter Health (429841M) EXOSEAL 6Fr Cardinal 1 EX600 023941 740984 926566 10 (EX600) Health Signature Audit [place] Stage Time Signature Unsigned Intra-Procedure 06/16/2018 Kaylee 10:45:21 AM Counts RT(R) Signatures Monitor : Kaylee Signature : Counts RT Date : Time : [facility] [address] [place], [place] [address]
--- NOTE | ~2018-06-16 | OP ---
PATIENT NAME: PARIS BENJAMIN MEDICAL RECORD: [id number] :55 LOCATION:D.CAT ADMISSION DATE: SURGEON: DUTCH MAYA MD DATE OF OPERATION: 06/16/2018 PROCEDURES: 1. PTCA stent LAD, diagonal. 2. PTCA ramus intermedius. 3. Left heart catheterization. 4. Selective coronary angiography. 5. Vein graft angiography. 6. MARTINEZ angiography. 7. Left ventriculogram. INDICATION: Angina and coronary artery disease. DESCRIPTION OF PROCEDURE: After informed consent was obtained and after a detailed description of risks, benefits as well as alternative therapies, the patient elected to proceed with angiogram and angioplasty. The right femoral area was prepped and draped in normal sterile fashion. Right femoral artery was cannulated via modified Seldinger technique with placement of 6-Indonesian sheath. All catheters exchanged through this sheath. FINDINGS: Left ventriculogram was performed in a standard 30-degree VANEGAS view, reveals good cardiac wall motion throughout all segments. Overall ejection fraction estimated at 55%. SELECTIVE CORONARY ANGIOGRAPHY: 1. Left main is with no significant angiographic disease. 2. Left anterior descending is totally occluded. 3. MARTINEZ to the LAD is widely patent. 4. The LAD diagonal has 95% stenosis prior to the LAD total occlusion. 5. The left circumflex has a ramus intermedius that has a previously placed stent. 6. The ramus intermedius has a previously placed stent with 90% in-stent restenosis. 7. Right coronary artery is chronically totally occluded via previous cardiac catheterization. 8. A vein graft to the LAD second diagonal and a vein graft to the distal circumflex are both patent and unchanged from previous angiography. PTCA STENT OF THE LAD, FIRST DIAGONAL: The stent used was a 2.0 x 8 mm Hans. PTCA OF THE RAMUS INTERMEDIUS: In-stent restenosis was addressed with a 2.0 x 30 balloon. Result was 0% residual stenosis throughout. OVERALL IMPRESSION: Successful percutaneous transluminal coronary angioplasty stent of the LAD, diagonal and successful PTCA of the ramus intermedius going from 90% to 95% initial stenosis to 0% residual. TRANSINT:[id number] Voice Confirmation ID: [id number] DOCUMENT ID: [id number] OPERATIVE REPORT [id number] SOURAVPARIS ROYAL NATHANAEL DUTCH MAYA MD at 1230 CC: [id number] DICTATION DATE: 06/16/18 1049 LITHARGE SUPERVISOR: 06/16/18 1157 [facility] [address] [place] [id number]
[~2018-06-16 08:35] MED LIST changes: +ATIVAN0.5 MG PO; +CATAPRES0.1 MG PO; +COREG25 MG PO; +DOLOPHINE HCL5 MG PO; +FUROSEMIDE20 MG PO; +NAPROSYN500 MG; +NITROSTAT0.4 MG SL; +NORCO 7.5/325 T1 TA1 PO; +PLAVIX75 MG PO; +ZANAFLEX4 MG PO; +ZOFRAN4 MG
[2018-06-16 09:23] VITALS: BP 140/63; Ht 175.3 cm; Wt 90.9 kg
[2018-06-16 09:36] LABS: BASOPHILS 0.1 % (0-2); EOSINOPHILS 0.9 % (0-7); HEMATOCRIT 41.4 % (42.0-54.0); HEMOGLOBIN 13.6 g/dL (13.5-17.5); IMMATURE GRANULOCYTES 0.2 % (0-5); LYMPHOCYTES 19.9 % (15-50); MCHC 32.9 g/dL (31.0-37.0); MCV 94.3 fL (80.0-100.0); MEAN PLATELET VOLUME 9.9 fL (7.4-10.4); MONOCYTES 10.6 % (2-11); NEUTROPHILS 68.3 % (40-80); PLATELET COUNT 109 10x3/uL (130-400); RBC 4.39 10x6/uL (4.20-6.10); RDW 14.7 % (11.5-14.5); WBC 8.2 10x3/uL (4.8-10.8)
[2018-06-16 09:53] LABS: CALC OSMOLALITY 280 mosm/kg (275-300); CALCIUM 8.8 mg/dL (8.5-10.1); CARBON DIOXIDE 27.9 mmol/L (21.0-32.0); CHLORIDE - SERUM 104 mmol/L (98-107); GLUCOSE 103 mg/dL (74-106); POTASSIUM - SERUM 4.3 mmol/L (3.5-5.1); SODIUM 139 mmol/L (136-145); UREA NITROGEN 21 mg/dL (7-18); eGFR NON AFRICAN AMERICAN 80 mL/min (90-120)
== END | disposition home or self-care (01) ==
LOC: D.CATH 08:35
PROVIDERS: Internal Medicine Interventional Cardiology
DX: I25.119 Atherosclerotic heart disease of native coronary artery with unspecified angina pectoris (principal); T82.855A Stenosis of coronary artery stent, initial encounter; Y83.8 Other surgical procedures as the cause of abnormal reaction of the patient, or of later complication, without mention of misadventure at the time of the procedure
CPT/HCPCS: 92920; 93459; C9600

== ENCOUNTER → 2018-06-28 18:49 | Outpatient (CLI) | payer MEDICARE ==
[2018-06-16 09:23] VITALS: BMI 29.6
[2018-06-28 19:39] LABS: BASOPHILS 0.1 % (0-2); EOSINOPHILS 1.2 % (0-7); HEMATOCRIT 40.9 % (42.0-54.0); HEMOGLOBIN 13.4 g/dL (13.5-17.5); IMMATURE GRANULOCYTES 0.2 % (0-5); LYMPHOCYTES 28.7 % (15-50); MCH 30.7 pg (26.0-34.0); MCHC 32.8 g/dL (31.0-37.0); MCV 93.6 fL (80.0-100.0); MEAN PLATELET VOLUME 10.2 fL (7.4-10.4); MONOCYTES 8.6 % (2-11); NEUTROPHILS 61.2 % (40-80); RBC 4.37 10x6/uL (4.20-6.10); RDW 14.3 % (11.5-14.5); WBC 8.4 10x3/uL (4.8-10.8)
[2018-06-28 19:49] LABS: PLATELET COUNT 145 10x3/uL (130-400)
== END | disposition home or self-care (01) ==
LOC: D.LABREF 18:49
PROVIDERS: Internal Medicine Interventional Cardiology
DX: R53.83 Other fatigue (principal)